=== PATIENT | female | born 1975 ===

== ENCOUNTER 2016-11-11 23:55 | Emergency (ER) | payer SELFPAY ==
[~2016-11-11] VITALS: Ht 165.1 cm; Wt 57.0 kg
--- NOTE | 2016-11-12 | NUR ---
Pt here per EMS and pt immediately starts saying that she wants to go home, can she leave, and complains of the back of her head hurting. Noted that the bleeding is controlled at this time, a bump to the back of her head noted but bleeding is controlled.
--- NOTE | 2016-11-12 00:05 | NUR ---
RN went in to check on pt, and she had pulled off the c-collar. Pt refuses to put it back on.
[2016-11-12 00:11] VITALS: BP 115/82
--- NOTE | 2016-11-12 00:15 | NUR ---
Pt up out of the bed, and is setting on the toilet, states she is ok when asked
--- NOTE | 2016-11-12 00:25 | NUR ---
Pt's significant other is here, pt and her friends talk loudly in the room.
--- OUTSIDE RECORDS SUMMARY | 2016-11-12 01:03 | XMS REPORT | Continuity of Care Document ---
Author Author [facility] Organization [facility] Address Unknown Phone Unavailable Support Name Relationship Address Phone MAITE FELIZ DO Caregiver [address] [place] [id number] RUDY VARGAS Caregiver [address] [place] [address] LARA ZAMORA Next Of Kin [address] [place] [id number] Insurance Providers Payer Name Policy Number Subscriber Name Relationship Self Pay Brenna Blackburn 16 Self / Same As Patient Chief Complaint and Reason for Visit Chief Complaint Injury Reason for Visit Subungual hematoma [id number] Problems Medical Problems Problem Onset Date Status Subungual hematoma Unknown Active Contusion, thumb Unknown Active Medications Medication Dose Route Sig Days/Qty Instructions Order Date Discontinued Date Status [No Home Meds] 07/29/14 Active Cephalexin 500 Mg ORAL THREE TIMES A DAY 15 Qty 07/29/14 Active Social History No social history. Hospital Discharge Instructions No hospital discharge instructions. Plan of Care Discharge Date 07/29/14 10:01am Disposition 01 HOME OR SELF-CARE Condition at Discharge Stable Instructions/Education Provided Subungual Hematoma (ED) Prescriptions See Medications Section Additional Instructions/Education Follow up with primary care doctor. return to ER as needed. Some of your test results may not be complete prior to your leaving the Emergency Department. The Emergency Department is not authorized to give test results over the phone. Please contact the doctor's office listed in this packet of information for your final results. Follow up with your primary care physician or return to the Emergency Department for worsening or worrisome symptoms. * Emergency Department phone number: [phone], x [phone]* MEDICAL RECORD If you need copies of your X-rays, call [phone]. If you need copies of your medical record, including lab results, a signed authorization for release of records will be required. A telephone call for release of Health Information is not allowed. BILLING Billing can sometimes be confusing and frustrating. To help avoid confusion in the future, please take a moment to acquaint yourself with the billing parties for services. SERVICE BILLING LIBERTARIAN Emergency Room Services [facility] Physician Services [facility] X-rays [facility] Patients will receive bills for services from the appropriate provider. If you have any questions about your [facility] bill, our staff will be happy to assist you. Please call [phone], and ask for the billing department. THANK YOU for choosing [facility] as your emergency care provider! Functional Status No functional status results. Allergies, Adverse Reactions, Alerts Allergen Type Severity Reaction Status Last Updated Propoxyphene Allergy Unknown Active 07/29/14 Acetaminophen Allergy Unknown Active 07/29/14 Fentanyl Allergy Unknown Active 07/29/14 Immunizations No immunization records. Vital Signs Acute Vital Signs Vital Response Date/Time Temperature (Fahrenheit) 98.0 Pulse 94 bpm Respirations 18 Height 5 ft 5 in Weight 125 lb Body Mass Index 20.0 kg/m^2 Results No known relevant diagnostic tests, laboratory data and/or discharge summary. Procedures No known history of procedures. Encounters Encounter Location Date/Time Registered Emergency Room [facility] 07/29/14 9:05am Recent Diagnosis
[2016-11-12] MEDS ORDERED: morphine INJ 4 MG/ML 1 ML SYRINGE IM PRN (01:20)
[2016-11-12] MEDS ORDERED: LIDOCAINE/EPINEPHRINE 1%-1:100,000 (XYLOCAINE) 20ML VIAL TOP ONE (01:20)
[2016-11-12] MEDS ORDERED: morphine INJ 4 MG/ML 1 ML SYRINGE IM ONE (02:10)
[2016-11-12] MEDS ORDERED: ACETAMINOPHEN 500 MG TAB (TYLENOL) PO ONE (02:10)
[2016-11-12] MEDS ORDERED: PROMETHAZINE 25 MG/ML (PHENERGAN) 1 ML VIAL IM ONE (02:10)
--- NOTE | 2016-11-12 02:32 | NUR ---
Pt adamant about calling her boyfriend, pt's neighbor had called earlier and left a message for pt, gave pt the number to call her neighbor. Pt upset, reports that her boyfriend is in halfway, pt states that she is hungry, tray ordered for her, pt given medications for headache pain. Pt resting
--- NOTE | 2016-11-12 03:00 | NUR ---
Pt eating her food
--- NOTE | 2016-11-12 03:17 | NUR ---
Pt's neighbor here to see pt, they visit quietly in the room at this time
--- NOTE | 2016-11-12 03:40 | NUR ---
Pt allowed to go out and smoke, with the neighbor friend that is here, he assures that pt will not leave
--- NOTE | 2016-11-12 03:50 | NUR ---
Pt back in from smoking, sets in the room and quietly talks with the friend
--- NOTE | 2016-11-12 04:10 | NUR ---
Neighbor friend comes out and wants to know when pt may be dismissed, Dr. Cornejo spoke with pt, and friend regarding why pt needs to stay and be re ct'd post 6 hours after her fall.
--- NOTE | 2016-11-12 04:30 | NUR ---
Dr. Cornejo notified
--- NOTE | 2016-11-12 04:30 | NUR ---
Pt had gone out to smoke again with her friend, went to check on pt and she is gone, pt eloped.
== END 2016-11-12 04:30 | disposition left against medical advice (07) ==
LOC: ED 11-12 00:58 → MERGE 11-12 00:58 → ED 11-12 04:30
DX: S06.0X0A Concussion without loss of consciousness, initial encounter (principal); S01.01XA Laceration without foreign body of scalp, initial encounter; W18.09XA Striking against other object with subsequent fall, initial encounter; F17.210 Nicotine dependence, cigarettes, uncomplicated
CPT/HCPCS: 12002; 96372; 99283; J2270; J2550

== ENCOUNTER → 2016-11-11 | Outpatient (CLI) | payer OTHER ==
[~2016-11-11] MED LIST: ALBU8CC IH; CEPH500C PO; CLIN-78 PO; HYDR-3811 PO; IPRA12.92 INH; KETO10TA PO; LORA1TAB PO; NAPR220T76 PO; NO HOME MEDS
--- NOTE | 2016-11-12 11:29 | Diagnostic Imaging Report ---
PROCEDURE: CT head and CT cervical spine without contrast. TECHNIQUE: Multiple contiguous axial images were obtained through the brain and cervical spine without the use of intravenous contrast. Sagittal and coronal reformations through the cervical spine were then performed. INDICATION: Fall COMPARISON: 05/11/2016. FINDINGS: Head: Linear hyperdensities along the sulci in the right orbitofrontal region is most compatible with a small amount of subarachnoid hemorrhage. No space-occupying mass. No evidence of territorial infarct. Basilar cisterns are patent. No focal scalp swelling. No skull fracture. The paranasal sinuses and mastoid air cells are clear. Cervical spine: No acute fracture or traumatic malalignment. Intervertebral disc spaces are normal. Airway is patent. No cervical lymphadenopathy. Visualized thyroid is normal. Emphysematous changes in the lung apices. IMPRESSION: 1. Trace subarachnoid hemorrhage in the right orbitofrontal region. Followup short-term unenhanced CT head is advised to assess stability. 2. No acute fracture or traumatic malalignment of the cervical spine. 3. Findings are in general agreement with the preliminary report, although the hyperdensity in the right frontal region is favored to represent subarachnoid hemorrhage rather than artifact. Dictated by: Dictated on workstation # [id number]
== END ==
LOC: EMS 23:50
PROVIDERS: ATTEND Emergency Medicine
DX: S01.81XA Laceration without foreign body of other part of head, initial encounter (principal); W10.1XXA Fall (on)(from) sidewalk curb, initial encounter
CPT/HCPCS: 70450; 72125